=== PATIENT | male | born 1955 | race Hispanic/Latino ===

== ENCOUNTER → 2018-04-19 | Day surgery (SDC) | payer OTHER ==
[~2018-04-19] MED LIST: CATAPRES-TTS 21 EACH TOP; CEFTRIAXONE SOD 1 GM/NS 50 ML 50 ML IV ONE; DEXAMETHASONE SOD PHOS INJ 4 MG/ML VIAL ONE; FEOSOL325 MG PO; IOPAMIDOL 610MG/1ML 300 MG/ML VIAL IV ONE; LIDOCAINE HCL 2% LOCAL INJ 5 ML SDV VIAL INJ ONE; LISINOPRIL10 MG PO; MIDAZOLAM HCL 2 MG/2 ML VIAL ONE; ONDANSETRON HCL INJ 2MG/ML 2ML 2 MG/ML VIAL ONE; PROPOFOL IV EMULSION 10 MG/ML 20 ML VIAL ONE; SEVOFLURANE INHAL SOLN 250 ML PEN BTL ONE; VITAMIN D400 UNIT PO
--- OUTSIDE RECORDS SUMMARY | 2018-04-19 06:22 | XMS REPORT ---
Author Author [facility] Address Unknown Phone Unavailable Care Team Providers Care Book Packer Name Role Phone Unavailable Unavailable Problems This patient has no known problems. Allergies, Adverse Reactions, Alerts This patient has no known allergies or adverse reactions. Medications This patient has no known medications. Encounters Start Date/Time End Date/Time Encounter Type Admission Type Attending [facility] Care Department Encounter ID 2018-04-30 00:00:00 2018-04-30 00:00:00 Outpatient [facility] [id number] 2018-04-29 00:00:00 2018-04-29 00:00:00 Outpatient [facility] [id number] 2018-04-29 00:00:00 2018-04-29 00:00:00 Outpatient [facility] [id number] 2018-04-23 00:00:00 2018-04-23 00:00:00 Outpatient [facility] [id number] 2018-04-23 00:00:00 2018-04-23 00:00:00 Outpatient [facility] [id number] 2018-03-19 12:36:20 2018-03-19 12:36:20 Outpatient [facility] [id number] 2018-03-19 12:05:01 2018-03-19 12:05:01 Outpatient [facility] [id number] 2018-01-14 00:00:00 2018-01-14 00:00:00 Outpatient [facility] [id number] 2018-01-14 00:00:00 2018-01-14 00:00:00 Outpatient [facility] [id number] 2017-12-31 15:07:01 2017-12-31 15:07:01 Outpatient [facility] [id number] 2017-12-31 14:20:06 2017-12-31 14:20:06 Outpatient [facility] [id number] 2017-12-18 12:49:07 2017-12-18 12:49:07 Outpatient [facility] [id number] 2017-12-18 12:25:10 2017-12-18 12:25:10 Outpatient [facility] [id number] 2017-12-11 00:00:00 2017-12-11 00:00:00 Outpatient [facility] [id number] 2017-12-07 10:30:21 2017-12-07 10:30:21 Outpatient [facility] [id number] 2017-12-07 08:18:59 2017-12-07 08:18:59 Outpatient [facility] [id number] 2017-11-13 14:12:21 2017-11-13 14:12:21 Outpatient [facility] [id number] 2017-11-09 08:46:26 2017-11-09 08:46:26 Outpatient [facility] [id number] 2017-11-09 08:43:14 2017-11-09 08:43:14 Outpatient [facility] [id number] 2017-10-04 00:00:00 2017-10-04 00:00:00 Outpatient [facility] [id number] 2017-09-17 13:40:46 2017-09-17 13:40:46 Outpatient [facility] [id number] 2017-09-17 12:53:09 2017-09-17 12:53:09 Outpatient [facility] [id number] 2017-09-10 00:00:00 2017-09-10 00:00:00 Outpatient [facility] [id number] 2017-09-10 00:00:00 2017-09-10 00:00:00 Outpatient [facility] [id number] 2017-08-14 13:40:46 2017-08-14 13:40:46 Outpatient [facility] [id number] 2017-08-13 11:36:33 2017-08-13 11:36:33 Outpatient [facility] [id number] 2017-08-13 00:00:00 2017-08-13 00:00:00 Outpatient [facility] [id number] 2017-08-07 08:55:42 2017-08-07 08:55:42 Outpatient [facility] [id number] 2017-07-31 08:18:51 2017-07-31 08:18:51 Outpatient [facility] [id number] 2017-07-31 00:00:00 2017-07-31 00:00:00 Outpatient [facility] [id number] 2017-06-18 12:51:31 2017-06-18 12:51:31 Outpatient [facility] [id number] 2017-06-18 11:24:53 2017-06-18 11:24:53 Outpatient [facility] [id number] 2017-06-18 00:00:00 2017-06-18 00:00:00 Outpatient [facility] [id number] 2017-05-22 00:00:00 2017-05-22 00:00:00 Outpatient [facility] [id number] 2017-05-18 00:00:00 2017-05-18 00:00:00 Outpatient [facility] [id number] 2017-05-15 15:44:16 2017-05-15 15:44:16 Outpatient [facility] [id number] 2017-05-15 13:52:43 2017-05-15 13:52:43 Outpatient [facility] [id number] 2017-05-08 07:05:36 2017-05-08 07:05:36 Outpatient [facility] [id number] 2017-05-04 11:37:01 2017-05-04 11:37:01 Outpatient [facility] [id number] 2017-05-02 12:57:14 2017-05-02 12:57:14 Outpatient [facility] [id number] 2017-05-01 08:43:51 2017-05-01 08:43:51 Outpatient [facility] [id number] 2017-04-20 13:50:29 2017-04-20 13:50:29 Outpatient [facility] [id number] 2017-04-18 10:01:20 2017-04-18 10:01:20 Outpatient [facility] [id number] 2017-04-17 13:49:13 2017-04-17 13:49:13 Outpatient [facility] [id number] 2017-04-17 13:17:10 2017-04-17 13:17:10 Outpatient [facility] [id number] 2017-04-06 10:36:43 2017-04-06 10:36:43 Outpatient [facility] [id number] 2017-04-04 11:04:18 2017-04-04 11:04:18 Outpatient [facility] [id number] 2017-04-04 09:46:43 2017-04-04 09:46:43 Outpatient [facility] [id number] 2017-03-21 00:00:00 2017-03-21 00:00:00 Outpatient [facility] [id number] 2017-03-21 00:00:00 2017-03-21 00:00:00 Outpatient [facility] [id number] 2017-03-07 00:00:00 2017-03-07 00:00:00 Outpatient [facility] [id number] 2017-03-06 13:40:08 2017-03-06 13:40:08 Outpatient [facility] [id number] 2017-03-06 08:24:17 2017-03-06 08:24:17 Outpatient [facility] [id number] 2017-03-02 11:28:16 2017-03-02 11:28:16 Outpatient [facility] [id number] 2017-02-28 15:04:51 2017-02-28 15:04:51 Outpatient [facility] [id number] 2017-02-28 11:40:17 2017-02-28 11:40:17 Outpatient [facility] [id number] 2017-02-14 10:21:57 2017-02-14 10:21:57 Outpatient [facility] [id number] 2017-02-13 14:54:06 2017-02-13 14:54:06 Outpatient [facility] [id number] 2017-02-13 14:28:19 2017-02-13 14:28:19 Outpatient [facility] [id number] 2017-02-12 08:21:46 2017-02-12 08:21:46 Outpatient [facility] [id number] 2017-02-12 07:02:30 2017-02-12 07:02:30 Outpatient [facility] [id number] 2017-01-25 00:00:00 2017-01-25 00:00:00 Outpatient [facility] [id number] 2017-01-23 10:19:46 2017-01-23 10:19:46 Outpatient [facility] [id number] 2017-01-23 09:36:24 2017-01-23 09:36:24 Outpatient [facility] [id number] 2017-01-16 14:53:00 2017-01-16 14:53:00 Outpatient [facility] [id number] 2017-01-16 14:13:21 2017-01-16 14:13:21 Outpatient [facility] [id number] 2017-01-11 11:06:59 2017-01-11 11:06:59 Outpatient [facility] [id number] 2017-01-09 07:58:28 2017-01-09 07:58:28 Outpatient [facility] [id number] 2017-01-08 10:01:16 2017-01-08 10:01:16 Outpatient [facility] [id number] 2016-12-28 10:20:54 2016-12-28 10:20:54 Outpatient [facility] [id number] 2016-12-26 09:43:43 2016-12-26 09:43:43 Outpatient [facility] [id number] 2016-12-25 10:33:27 2016-12-25 10:33:27 Outpatient [facility] [id number] 2016-12-19 14:35:29 2016-12-19 14:35:29 Outpatient [facility] [id number] 2016-12-19 13:58:24 2016-12-19 13:58:24 Outpatient [facility] [id number] 2016-12-14 10:24:03 2016-12-14 10:24:03 Outpatient [facility] [id number] 2016-12-12 07:36:30 2016-12-12 07:36:30 Outpatient [facility] [id number] 2016-12-11 08:15:31 2016-12-11 08:15:31 Outpatient [facility] [id number] 2016-11-30 12:45:50 2016-11-30 12:45:50 Outpatient [facility] [id number] 2016-11-28 08:44:39 2016-11-28 08:44:39 Outpatient [facility] [id number] 2016-11-28 08:39:06 2016-11-28 08:39:06 Outpatient [facility] [id number] 2016-11-28 00:00:00 2016-11-28 00:00:00 Outpatient [facility] [id number] 2016-11-27 10:24:11 2016-11-27 10:24:11 Outpatient [facility] [id number] 2016-11-21 12:34:24 2016-11-21 12:34:24 Outpatient [facility] [id number] 2016-11-21 11:50:33 2016-11-21 11:50:33 Outpatient [facility] [id number] 2016-11-16 10:35:47 2016-11-16 10:35:47 Outpatient [facility] [id number] 2016-11-14 11:54:12 2016-11-14 11:54:12 Outpatient [facility] [id number] 2016-11-14 09:49:17 2016-11-14 09:49:17 Outpatient [facility] [id number] 2016-10-31 00:00:00 2016-10-31 00:00:00 Outpatient [facility] [id number] 2016-10-31 00:00:00 2016-10-31 00:00:00 Outpatient [facility] [id number] 2016-10-31 00:00:00 2016-10-31 00:00:00 Outpatient [facility] [id number] 2016-10-31 00:00:00 2016-10-31 00:00:00 Outpatient [facility] [id number] 2016-10-23 09:32:31 2016-10-23 09:32:31 Outpatient [facility] [id number] 2016-10-19 10:00:45 2016-10-19 10:00:45 Outpatient [facility] [id number] 2016-10-17 09:36:16 2016-10-17 09:36:16 Outpatient [facility] [id number] 2016-10-17 07:02:02 2016-10-17 07:02:02 Outpatient [facility] [id number] 2016-10-12 00:00:00 2016-10-12 00:00:00 Outpatient [facility] [id number] 2016-10-10 16:03:26 2016-10-10 16:03:26 Outpatient [facility] [id number] 2016-10-10 13:50:01 2016-10-10 13:50:01 Outpatient [facility] [id number] 2016-10-02 07:56:16 2016-10-02 07:56:16 Outpatient [facility] [id number] 2016-09-22 08:28:23 2016-09-22 08:28:23 Outpatient [facility] [id number]
--- OUTSIDE RECORDS SUMMARY | 2018-04-19 06:22 | XMS REPORT | Clinical Summary ---
Author Author [facility] Organization [facility] Address Unknown Phone Unavailable Care Team Providers Care Delinquent Tax Collector Name Role Phone PCP Unavailable Allergies No Known Allergies Medications End Date Status Medication Sig Dispensed Refills Start Date Active lisinopril (PRINIVIL, Take 20 mg by 0 ZESTRIL) 20 mg tablet mouth daily. Active ondansetron (ZOFRAN) 8 mg Take 1 tablet 90 tablet 2 tablet by mouth 7 every 8 hours as needed for Nausea. Active DULoxetine (CYMBALTA) 30 Take 1 90 capsule 1 mg delayed release capsule by 8 capsuleIndications: mouth daily. Neuropathy associated with cancer Active polyethylene glycol Add lukewarm 4000 mL 0 (GOLYTELY) 236-22.74-6.74 drinking 8 -5.86 gram oral water to the solutionIndications: fill rohan (4 Colon cancer metastasized liters) and to intra-abdominal lymph shake. Drink node as directed by your doctor.. 05/15/2017 Discontinued baclofen (LIORESAL) 10 mg Take 1 tablet 30 tablet 0 tablet by mouth 3 7 times daily as needed (hiccups) Start taking at night as medication can make you drowsy.. 05/15/2017 Discontinued DULoxetine (CYMBALTA) 30 Take 1 45 capsule 0 mg delayed release capsule by 8 capsuleIndications: Colon mouth daily. cancer metastasized to intra-abdominal lymph node 05/15/2017 Discontinued DULoxetine (CYMBALTA) 30 Take 1 45 capsule 0 201 mg delayed release capsule by 8 capsuleIndications: mouth daily. 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 Hypertension 10/10/2016 Encounters Care Team Description Date Type Specialty Scott Byers MD Crawford, Margaret G, SPOOL SANDER Colon cancer metastasized to intra-abdominal lymph node (Primary Dx) 03/19/2018 Office Visit Oncology 03/19/2018 Travel Racquel Adamson, Fellow() Cong Ohara, Fellow() Small B-cell lymphoma of intra-abdominal lymph nodes (Primary Dx) 12/31/2017 Office Visit Hematology Sierra Appiah MD Crawford, Margaret G, SPOOL SANDER Colon cancer metastasized to intra-abdominal lymph node (Primary Dx) 12/18/2017 Office Visit Oncology Anastasiia Regalado MD Lymphadenopathy 12/07/2017 Hospital Radiology Encounter Anastasiia Regalado MD Malignant neoplasm of colon, unspecified part of colon 12/07/2017 Hospital Radiology Encounter Vashti Hoyt Interpretation 12/04/2017 Telephone Scott Byers MD Crawford, Margaret G, SPOOL SANDER Colon cancer metastasized to intra-abdominal lymph node (Primary Dx) 11/13/2017 Office Visit Oncology Scott Byers MD Colon cancer metastasized to intra-abdominal lymph node 11/09/2017 Ancillary Radiology Procedure Ilda Bennett MD Davis, Robert W, Fellow() Small B-cell lymphoma of intra-abdominal lymph nodes (Primary Dx); Colon cancer metastasized to intra-abdominal lymph node 09/17/2017 Office Visit Hematology Scott Byers MD Crawford, Margaret G, SPOOL SANDER Colon cancer metastasized to intra-abdominal lymph node (Primary Dx) 08/14/2017 Office Visit Oncology Sujatha Lanier NP 08/13/2017 Anesthesia Gastroenterology Event Cong Alvarez MD Pappas, Stephen C, MD Colon cancer metastasized to intra-abdominal lymph node 08/13/2017 Hospital Encounter Martita Gee Interpretation 08/13/2017 Telephone Lucia Longoria RN 08/09/2017 Clinical Case Mgt Cong Alvarez MD Patel, Falguni, MD Proc, Bt Gi 07/31/2017 Hospital Encounter Ilda Bennett MD Small B-cell lymphoma, unspecified body region (Primary Dx) 06/18/2017 Office Visit Hematology Ilda Bennett MD Small B-cell lymphoma, unspecified body region 06/18/2017 Orders Only Hematology Debo Humphries NP Colon cancer metastasized to intra-abdominal lymph node (Primary Dx) 05/17/2017 Orders Only Gastroenterology Scott Byers MD Afrough, Aimaz, Fellow() CLL (chronic lymphocytic leukemia) (Primary Dx); Neuropathy associated with cancer; Colon cancer metastasized to intra-abdominal lymph node 05/15/2017 Office Visit Oncology Scott Byers MD Colon cancer metastasized to intra-abdominal lymph node 05/08/2017 Ancillary Radiology Procedure Scott Byers MD Allen, Leikasha M, RN 05/04/2017 Hospital Oncology Encounter Miah Woodruff MD Huynh-Truong, Lan Anh, RN Colon cancer metastasized to intra-abdominal lymph node 05/02/2017 Hospital Oncology Encounter Scott Byers MD 04/25/2017 Nurse Only Oncology Anastasiia Regalado MD Woods, Latoya L, RN 04/20/2017 Hospital Oncology Encounter Adrianna Hollins, Fellow() Neuropathy associated with cancer (Primary Dx) 04/20/2017 Orders Only Oncology Miah Woodruff MD 04/19/2017 Nurse Only Oncology Anastasiia Regalado MD Woods, Latoya L, RN Colon cancer metastasized to intra-abdominal lymph node 04/18/2017 Hospital Oncology Encounter after 04/18/2017 Family History Medical History Relation Name Comments Hypertension Father Diabetes Mother Relation Name Status Comments Father Mother Social History Date Tobacco Use Types Packs/Day Years Used Never Smoker Smokeless Tobacco: Never Used Tobacco Cessation: Counseling Given: No Alcohol Use Drinks/Week oz/Week Comments No Sex Assigned at Date Recorded Not on file Industry Job Start Date Occupation Not on file Not on file Not on file Travel End Travel History Travel Start No recent travel history available. Last Filed Vital Signs Time Taken Vital Sign Reading 03/19/2018 12:36 PM [employer] Blood Pressure 140/81 03/19/2018 12:36 PM [employer] Pulse 64 03/19/2018 12:36 PM [employer] SUPERVISOR Temperature 36.6 C (97.9 F) 03/19/2018 12:36 PM [employer] SUPER[employer] Respiratory Rate 17 08/13/2017 1:45 PM CDT Oxygen Saturation 97% - Inhaled Oxygen - Concentration 03/19/2018 12:36 PM [employer] SUPER[employer] Weight 95.4 kg (210 lb 6.4 oz) 03/19/2018 12:36 PM [employer] SUPER[employer] Height 167.6 cm (5' 6") 03/19/2018 12:36 PM [employer]ING SUPERVISOR Body Mass Index 33.96 Plan of Treatment Care Team Description Date Type Specialty Scott Byers MD [address] [place] [address] [phone] 04/23/2018 Lab Appointment Lab Scott Byers MD [address] [place] [address] [phone] 04/23/2018 Ancillary Radiology Procedure Ilda Bennett MD [address] [facility] [address] [place] [address] [phone] 04/29/2018 Lab Appointment Lab Cong Ohara, Damon() [facility] [address] [place] [address] 04/29/2018 Office Visit Hematology Scott Byers MD [address] [facility] [address] [place] [address] [phone] 04/30/2018 Office Visit Oncology Health Maintenance Due Date Last Done Comments IMM Influenza Seasonal 12/03/2017 Oct to May (>/=19 yrs) Colonoscopy 3yr 08/13/2020 08/13/2017 Procedures Comments Procedure Name Priority Date/Time Associated Diagnosis PATHOLOGIST REVIEW Routine 03/19/2018 12:10 PM [employer]OCK[employer] SUPERVISOR FERRITIN Routine 03/19/2018 Colon cancer metastasized 12:10 PM [employer]OCKING SUPERVISOR to intra-abdominal lymph node CBC/DIFF STAT 03/19/2018 Colon cancer metastasized 12:10 PM FIB[employer] LOCKING SUPERVISOR to intra-abdominal lymph node CEA STAT 03/19/2018 Colon cancer metastasized 12:10 PM F[employer] LOCKING SUPERVISOR to intra-abdominal lymph node COMPREHENSIVE METABOLIC STAT 03/19/2018 Colon cancer metastasized PANEL(DBIL NOT INCLUDED) 12:10 PM F[employer]ER LOCKING SUPERVISOR to intra-abdominal lymph node IRON PROFILE Routine 12/31/2017 2:36 PM CDT FERRITIN Routine 12/31/2017 2:36 PM CDT CEA STAT 12/18/2017 Colon cancer metastasized 12:31 PM CDT to intra-abdominal lymph node COMPREHENSIVE METABOLIC STAT 12/18/2017 Colon cancer metastasized PANEL(DBIL NOT INCLUDED) 12:31 PM CDT to intra-abdominal lymph node CBC/DIFF STAT 12/18/2017 Colon cancer metastasized 12:31 PM CDT to intra-abdominal lymph node [facility] FLOW Routine 12/07/2017 2:58 PM CDT PERCUT BIOPSY, ABDOMINAL Routine 12/07/2017 Lymphadenopathy MASS 12:14 PM CDT FNA W/IMAGE Routine 12/07/2017 Malignant neoplasm of 12:14 PM CDT colon, unspecified part of colon CT GUIDANCE CYST ASPER Routine 12/07/2017 Lymphadenopathy DRAIN 12:14 PM CDT [facility] SURGICAL PATHOLOGY Routine 12/07/2017 12:00 PM CDT [facility] CYTOLOGY Routine 12/07/2017 12:[address] ABDOMEN AND PELVIS Today 11/09/2017 Colon cancer metastasized CONTRAST 12:31 PM CDT to intra-abdominal lymph node CT CHEST W CONTRAST Today 11/09/2017 Colon cancer metastasized 12:31 PM CDT to intra-abdominal lymph node CBC/DIFF STAT 11/09/2017 Colon cancer metastasized 8:50 AM CDT to intra-abdominal lymph node CEA STAT 11/09/2017 Colon cancer metastasized 8:50 AM CDT to intra-abdominal lymph node COMPREHENSIVE METABOLIC STAT 11/09/2017 Colon cancer metastasized PANEL(DBIL NOT INCLUDED) 8:50 AM CDT to intra-abdominal lymph node CBC/DIFF Routine 09/17/2017 Small B-cell lymphoma, 1:12 PM CDT unspecified body region HGB FRACTIONATION Routine 09/17/2017 Small B-cell lymphoma, 1:12 PM CDT unspecified body region LDH Routine 09/17/2017 Small B-cell lymphoma, 1:12 PM CDT unspecified body region [facility] SURGICAL PATHOLOGY Routine 08/13/2017 12:38 PM CDT COLONOSCOPY Routine 08/13/2017 Colon cancer metastasized 11:36 AM CDT to intra-abdominal lymph node PATHOLOGIST REVIEW Routine 08/07/2017 8:56 AM CDT CEA Routine 08/07/2017 Colon cancer metastasized 8:56 AM CDT to intra-abdominal lymph node COMPREHENSIVE METABOLIC STAT 08/07/2017 Colon cancer metastasized PANEL(DBIL NOT INCLUDED) 8:56 AM CDT to intra-abdominal lymph node CBC/DIFF STAT 08/07/2017 Colon cancer metastasized 8:56 AM CDT to intra-abdominal lymph node 12 LEAD EKG Routine 07/31/2017 8:58 AM CDT PATHOLOGIST REVIEW Routine 06/18/2017 11:43 AM CDT SAVE SMEAR/ NOT FOR PATH STAT 06/18/2017 Small B-cell lymphoma, REVIEW 11:43 AM CDT unspecified body region COMPREHENSIVE METABOLIC STAT 06/18/2017 Small B-cell lymphoma, PANEL(DBIL NOT INCLUDED) 11:43 AM CDT unspecified body region CBC/DIFF STAT 06/18/2017 Small B-cell lymphoma, 11:43 AM CDT unspecified body region CEA STAT 05/15/2017 Colon cancer metastasized 1:53 PM CDT to intra-abdominal lymph node COMPREHENSIVE METABOLIC STAT 05/15/2017 Colon cancer metastasized PANEL(DBIL NOT INCLUDED) 1:53 PM CDT to intra-abdominal lymph node CBC/DIFF STAT 05/15/2017 Colon cancer metastasized 1:53 PM CDT to intra-abdominal lymph node CT ABDOMEN AND PELVIS Routine 05/08/2017 Colon cancer metastasized CONTRAST 8:57 AM [employer] SUPERVISOR to intra-abdominal lymph node CT CHEST W CONTRAST Routine 05/08/2017 Colon cancer metastasized 8:57 AM [employer]OCK[employer] SUPER[employer]OR to intra-abdominal lymph node COMPREHENSIVE METABOLIC STAT 05/01/2017 Colon cancer metastasized PANEL(DBIL NOT INCLUDED) 8:50 AM F[employer]OCKING SUPER[employer]OR to intra-abdominal lymph node CBC/DIFF Routine 05/01/2017 Colon cancer metastasized 8:50 AM F[employer]OCKING SUPER[employer]OR to intra-abdominal lymph node after 04/18/2017 Results * CEA (03/19/2018 12:10 PM FIBER [employer]OCKING SUPERVISOR) Only the most recent of 5 results within the time period is included. CEA <1.00 <5.0 ng/mL [facility] 1 Specimen Blood Performing Organization Address City/State/Zipcode Phone Number [facility] 1 * COMPREHENSIVE METABOLIC PANEL(DBIL NOT INCLUDED) (03/19/2018 12:10 PM F[employer]OCKING SUPERVISOR) Only the most recent of 7 results within the time period is included. Albumin 4.9 4.2 - 5.5 g/dL [facility] 1 Calcium 9.9 8.6 - 10.3 mg/dL [facility] 1 CO2 30 21 - 31 mmol/L [facility] 1 Chloride 101 98 - 107 mmol/L [facility] 1 Creatinine 0.80 0.70 - 1.30 mg/dL [facility] 1 Glucose 99 70 - 110 mg/dL [facility] 1 Alk Phos 53 34 - 104 U/L [facility] 1 Potassium 4.3 3.5 - 5.1 mmol/L [facility] 1 Sodium 138 136 - 145 mmol/L [facility] 1 ALT 21 7 - 52 U/L [facility] 1 AST 18 13 - 39 U/L [facility] 1 Urea Nitrogen 19 7 - 25 mg/dL [facility] 1 T Bilirubin 0.6 0.2 - 1.2 mg/dL [facility] 1 T Protein 7.0 6.0 - 8.3 g/dL [facility] 1 GFR, Estimated >60 mL/min/1.73 m2 [facility] 1 GFR, Estim, >60 mL/min/1.73 m2 [facility] 1 Afr-Am Anion Gap 7 [facility] 1 Specimen Blood Performing Organization Address [facility] Phone Number [facility] 1 * PATHOLOGIST REVIEW (03/19/2018 12:10 PM FIBER LOCKING SUPERVISOR) Only the most recent of 3 results within the time period is included. Pathologist (note) [facility] Review Slide reviewed for cell 2 identification. There is absolute lymphocytosis consisting of predominantly small to intermediate size lymphoid cells with clumped chromatin. Occasional larger cells with finer dispersed chromatin and prominent nucleoli are also identified, likely representing prolymphocytes. These morphologic findings are compatible with the patient's known diagnosis of chronic lymphocytic leukemia/small lymphocytic lymphoma. If clinically warranted, peripheral blood flow cytometry may be requested for further evaluation. Electronically signed out by: Rodolfo Martinez M.D./[id number] CPT [id number] Performing Organization Address [facility] Phone Number [facility] 2 * FERRITIN (03/19/2018 12:10 PM FIBER LOCKING SUPERVISOR) Only the most recent of 2 results within the time period is included. Ferritin 67.70 23.9 - 336.2 ng/mL [facility] 1 Specimen Blood Performing Organization Address [facility] Phone Number [facility] 1 * CBC/DIFF (03/19/2018 12:10 PM FIBER LOCKING SUPERVISOR) Only the most recent of 8 results within the time period is included. WBC 14.3 (H) 4.5 - 12.0 K/uL [facility] 2 RBC 5.50 4.60 - 6.20 M/uL [facility] 2 Hemoglobin 14.0 14.0 - 18.0 g/dL [facility] 2 Hematocrit 43.9 40.0 - 54.0 % [facility] 2 MCV 80 (L) 82 - 92 fL [facility] 2 MCH 25.5 (L) 27.0 - 31.0 pg [facility] 2 MCHC 31.9 (L) 32.0 - 36.0 g/dL [place] [address] RDW 44.9 (H) 35.1 - 43.9 fL [facility] 2 Platelet 202 150 - 400 K/uL [facility] 2 Neutrophil 39.0 34.0 - 67.9 % [facility] 3 Lymphocyte 29.0 21.8 - 50.0 % [facility] 3 Atypical Lymph 15 % [facility] 3 Monocyte 15.0 (H) 5.3 - 12.0 % [facility] 3 Basophil None seen 0.2 - 1.2 % [facility] 3 Eosinophil 2.0 0.8 - 5.0 % [facility] 3 Neutrophil, Abs 5.58 (H) 1.78 - 5.36 K/uL [facility] 3 Lymphocyte, Abs 4.15 (H) 1.32 - 3.57 K/uL [facility] 3 Monocyte, Abs 2.15 (H) 0.30 - 0.82 K/uL [facility] 3 Basophil, Abs None seen 0.01 - 0.08 K/uL [facility] 3 Eosinophil, Abs 0.29 0.04 - 0.54 K/uL [facility] 3 Diff Comment Reviewed by Pathologist [facility] 3 Specimen Blood Performing Organization Address City/[facility] Phone Number [facility] 2 MAIN[facility] 3 * IRON PROFILE (12/31/2017 2:36 PM CDT) Iron 70 50 - 212 ug/dL [facility] 1 TIBC 477 (H) 250 - 450 ug/dL [facility] 1 % Iron Sat 15 % [facility] 1 Performing Organization Address [facility] Phone Number [facility] 1 * [facility] FLOW (12/07/2017 2:58 PM CDT) [facility] FLOW (note) [facility] IMMUNOPHENOTYPING BY FLOW CYTOMETRY Collected: 12/07/2017 Received: 12/07/2017 Specimen(s) Received: Other, deep fine needle aspiration LN Lt iliac Results-Comments Flow cytometric analysis identifies 30% of total events as CD19 and CD20 (dim/partial) positive B-cells co-expressing CD5, CD23 and kappa (dim) light chain.This immunophenotype and limited morphologic findings are characteristic for small lymphocytic lymphoma or CLL. Interpretation TISSUE, FLOW CYTOMETRY ([id number], [id number]): - CD5+ MONOCLONAL B-CELL POPULATION IDENTIFIED (SEE COMMENT) PROCEDURE: A cell suspension is prepared and stained with the following: CD45, CD2, CD3, CD5, CD7, CD4, CD8, CD19, CD20, CD22, CD23, CD25, CD16, CD56, CD10 ([place]), CD11c, CD103, CD38,SIg [place],SIg Lambda, 7-AAD. FINDINGS: Viability of the specimen: 72.5% Aberrant monotypic B cell population (small to medium cell size): 30% of events - POSITIVE for: CD5, CD19, CD20 (dim, partial), CD22, CD23, CD45 and dim surface kappa light chain. - NEGATIVE for: CD10, SIg Lambda, and all other tested markers OTHER FINDINGS: LYMPHOCYTES: 71.4% T-cells: 12.8% of lymphocytes with a CD4/CD8 ratio of 10.6, without loss of celestin T-cell markers B-cells: 0.1% of lymphocytes without light chain restriction NK cells: 0.1% of lymphocytes GRANULOCYTES: 0.2% MONOCYTES: 0.2% Red cells/debris/unclassified: 20.4% of events The residents and fellow designated below analyzed the pattern and completed the interpretation and report. Anatoliy Butler MD; Gissell Hall MD. TEACHING PHYSICIAN STATEMENT "I have personally reviewed all relevant specimen preparations and agree with the resident/fellow's findings and interpretation. I have personally issued this report". CPT 14766 This test was developed and its performance characteristics determined by [facility].It has not been cleared or approved by the U.S. Food and Drug Administration.The FDA has determined that such clearance or approval is not necessary.This test is used for clinical purposes.It should not be regarded as investigational or for research. This laboratory is certified under the Clinical Laboratory Improvement Amendments of 1988 (CLIA-88) as qualified to perform high complexity clinical laboratory testing. Electronically Signed Out lc/12/07/2017 KEIRA FLYNN MD Staff Pathologist Performing Organization Address City/State/Zipcode Phone Number [facility] * CT GUIDANCE CYST ASPER DRAIN (12/07/2017 12:14 PM CDT) Impressions Performed At IMPRESSION: SMS Successful CT guided fine-needle aspiration and core biopsy of a left iliac chain lymph node. Dictated By: Francisco Shelton MD, 12/15/2017 7:09 PM I have reviewed the study and agree with the findings in this report. Signed By: Dariel Garcia MD, 12/18/2017 1:36 PM Narrative Performed At Procedure: CT guided biopsy ofa left iliac chain lymph node . 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 Post operative diagnosis: Left iliac chain lymphadenopathy. Conscious Sedation: None Sedation time: 0 minutes Patient was continuously monitored by the dedicated IR nurse. Dose Length Product:305 mGy*cm. Contrast used:NONE Estimated blood loss: less than 5 mL Specimens:5 core biopsy samples, 3 FNA biopsy samples Blood administered: None Implants: None Condition: Good Disposition: Home CPT procedure code: 78884 S&I code: [id number] DISCUSSION: The prior CT dated 11/09/17 was evaluated which demonstrated left iliac chain lymphadenopathy.A limited CT scan was performed in the region of abnormality, which redemonstrated the previous findings.A safe approach was determined for specimen acquisition. The patient was placed in the supine position.The left abdominal/inguinal region was prepped and draped in the usual sterile fashion.1% lidocaine was infiltrated into the subcutaneous tissues for local anesthesia. Under computed tomographic guidance, a 16 gauge coaxial introducer needle was passed into the mass.A total of 3 passes were made through the mass with 22-gauge needles.The samples were given to the pathologist for evaluation and adequacy confirmed. A total of 5 core biopsies were then obtained through the needle guide using a 18-gauge, 9 cm long, 1 mm throw core biopsy gun. The core biopsy samples appeared fragmented. All specimens were given to pathology for further evaluation.There were no immediate complications.Dariel Garcia MD was present throughout the procedure. Condition:Stable Disposition:Home Procedure Note Interface, Rad/Mammog In - 12/18/2017 1:41 PM CDT Procedure: CT guided biopsy of a left iliac chain lymph node . 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 Post operative diagnosis: Left iliac chain lymphadenopathy. Conscious Sedation: None Sedation time: 0 minutes Patient was continuously monitored by the dedicated IR nurse. Dose Length Product: 305 mGy*cm. Contrast used: NONE Estimated blood loss: less than 5 mL Specimens:5 core biopsy samples, 3 FNA biopsy samples Blood administered: None Implants: None Condition: Good Disposition: Home CPT procedure code: 80487 S&I code: 77621 DISCUSSION: The prior CT dated 11/09/17 was evaluated which demonstrated left iliac chain lymphadenopathy. A limited CT scan was performed in the region of abnormality, which redemonstrated the previous findings. A safe approach was determined for specimen acquisition. The patient was placed in the supine position. The left abdominal/inguinal region was prepped and draped in the usual sterile fashion. 1% lidocaine was infiltrated into the subcutaneous tissues for local anesthesia. Under computed tomographic guidance, a 16 gauge coaxial introducer needle was passed into the mass. A total of 3 passes were made through the mass with 22-gauge needles. The samples were given to the pathologist for evaluation and adequacy confirmed. A total of 5 core biopsies were then obtained through the needle guide using a 18-gauge, 9 cm long, 1 mm throw core biopsy gun. The core biopsy samples appeared fragmented. All specimens were given to pathology for further evaluation.There were no immediate complications. Dariel Garcia MD was present throughout the procedure. Condition: Stable Disposition: Home IMPRESSION IMPRESSION: Successful CT guided fine-needle aspiration and core biopsy of a left iliac chain lymph node. Dictated By: Francisco Shelton MD, 12/15/2017 7:09 PM I have reviewed the study and agree with the findings in this report. Signed By: Dariel Garcia MD, 12/18/2017 1:36 PM Performing Organization Address City/State/Zipcode Phone Number [facility] * PERCUT BIOPSY, ABDOMINAL MASS (12/07/2017 12:14 PM CDT) Impressions Performed At IMPRESSION: [facility] Successful CT guided fine-needle aspiration and core biopsy of a left iliac chain lymph node. Dictated By: Fracnisco Shelton MD, 12/15/2017 7:09 PM I have reviewed the study and agree with the findings in this report. Signed By: Dariel Garcia MD, 12/18/2017 1:36 PM Narrative Performed At Procedure: CT guided biopsy ofa left iliac chain lymph node . 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 Post operative diagnosis: Left iliac chain lymphadenopathy. Conscious Sedation: None Sedation time: 0 minutes Patient was continuously monitored by the dedicated IR nurse. Dose Length Product:305 mGy*cm. Contrast used:NONE Estimated blood loss: less than 5 mL Specimens:5 core biopsy samples, 3 FNA biopsy samples Blood administered: None Implants: None Condition: Good Disposition: Home CPT procedure code: 78773 S&I code: [id number] DISCUSSION: The prior CT dated 11/09/17 was evaluated which demonstrated left iliac chain lymphadenopathy.A limited CT scan was performed in the region of abnormality, which redemonstrated the previous findings.A safe approach was determined for specimen acquisition. The patient was placed in the supine position.The left abdominal/inguinal region was prepped and draped in the usual sterile fashion.1% lidocaine was infiltrated into the subcutaneous tissues for local anesthesia. Under computed tomographic guidance, a 16 gauge coaxial introducer needle was passed into the mass.A total of 3 passes were made through the mass with 22-gauge needles.The samples were given to the pathologist for evaluation and adequacy confirmed. A total of 5 core biopsies were then obtained through the needle guide using a 18-gauge, 9 cm long, 1 mm throw core biopsy gun. The core biopsy samples appeared fragmented. All specimens were given to pathology for further evaluation.There were no immediate complications.Dariel Garcia MD was present throughout the procedure. Condition:Stable Disposition:Home Procedure Note Interface, Rad/Mammog In - 12/18/2017 1:41 PM CDT Procedure: CT guided biopsy of a left iliac chain lymph node . 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 Post operative diagnosis: Left iliac chain lymphadenopathy. Conscious Sedation: None Sedation time: 0 minutes Patient was continuously monitored by the dedicated IR nurse. Dose Length Product: 305 mGy*cm. Contrast used: NONE Estimated blood loss: less than 5 mL Specimens:5 core biopsy samples, 3 FNA biopsy samples Blood administered: None Implants: None Condition: Good Disposition: Home CPT procedure code: 47364 S&I code: 84941 DISCUSSION: The prior CT dated 11/09/17 was evaluated which demonstrated left iliac chain lymphadenopathy. A limited CT scan was performed in the region of abnormality, which redemonstrated the previous findings. A safe approach was determined for specimen acquisition. The patient was placed in the supine position. The left abdominal/inguinal region was prepped and draped in the usual sterile fashion. 1% lidocaine was infiltrated into the subcutaneous tissues for local anesthesia. Under computed tomographic guidance, a 16 gauge coaxial introducer needle was passed into the mass. A total of 3 passes were made through the mass with 22-gauge needles. The samples were given to the pathologist for evaluation and adequacy confirmed. A total of 5 core biopsies were then obtained through the needle guide using a 18-gauge, 9 cm long, 1 mm throw core biopsy gun. The core biopsy samples appeared fragmented. All specimens were given to pathology for further evaluation.There were no immediate complications. Dariel Garcia MD was present throughout the procedure. Condition: Stable Disposition: Home IMPRESSION IMPRESSION: Successful CT guided fine-needle aspiration and core biopsy of a left iliac chain lymph node. Dictated By: Francisco Shelton MD, 12/15/2017 7:09 PM I have reviewed the study and agree with the findings in this report. Signed By: Dariel Garcia MD, 12/18/2017 1:36 PM Performing Organization Address City/State/Zipcode Phone Number SMS * FNA W/IMAGE (12/07/2017 12:14 PM CDT) Impressions Performed At IMPRESSION: SMS Successful CT guided fine-needle aspiration and core biopsy of a left iliac chain lymph node. Dictated By: Francisco Shelton MD, 12/15/2017 7:09 PM I have reviewed the study and agree with the findings in this report. Signed By: Dariel Garcia MD, 12/18/2017 1:36 PM Narrative Performed At Procedure: CT guided biopsy ofa left iliac chain lymph node . 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 Post operative diagnosis: Left iliac chain lymphadenopathy. Conscious Sedation: None Sedation time: 0 minutes Patient was continuously monitored by the dedicated IR nurse. Dose Length Product:305 mGy*cm. Contrast used:NONE Estimated blood loss: less than 5 mL Specimens:5 core biopsy samples, 3 FNA biopsy samples Blood administered: None Implants: None Condition: Good Disposition: Home CPT procedure code: 46078 S&I code: [id number] DISCUSSION: The prior CT dated 11/09/17 was evaluated which demonstrated left iliac chain lymphadenopathy.A limited CT scan was performed in the region of abnormality, which redemonstrated the previous findings.A safe approach was determined for specimen acquisition. The patient was placed in the supine position.The left abdominal/inguinal region was prepped and draped in the usual sterile fashion.1% lidocaine was infiltrated into the subcutaneous tissues for local anesthesia. Under computed tomographic guidance, a 16 gauge coaxial introducer needle was passed into the mass.A total of 3 passes were made through the mass with 22-gauge needles.The samples were given to the pathologist for evaluation and adequacy confirmed. A total of 5 core biopsies were then obtained through the needle guide using a 18-gauge, 9 cm long, 1 mm throw core biopsy gun. The core biopsy samples appeared fragmented. All specimens were given to pathology for further evaluation.There were no immediate complications.Dariel Garcia MD was present throughout the procedure. Condition:Stable Disposition:Home Procedure Note Interface, Rad/Mammog In - 12/18/2017 1:41 PM CDT Procedure: CT guided biopsy of a left iliac chain lymph node . 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 Post operative diagnosis: Left iliac chain lymphadenopathy. Conscious Sedation: None Sedation time: 0 minutes Patient was continuously monitored by the dedicated IR nurse. Dose Length Product: 305 mGy*cm. Contrast used: NONE Estimated blood loss: less than 5 mL Specimens:5 core biopsy samples, 3 FNA biopsy samples Blood administered: None Implants: None Condition: Good Disposition: Home CPT procedure code: 71511 S&I code: 23735 DISCUSSION: The prior CT dated 11/09/17 was evaluated which demonstrated left iliac chain lymphadenopathy. A limited CT scan was performed in the region of abnormality, which redemonstrated the previous findings. A safe approach was determined for specimen acquisition. The patient was placed in the supine position. The left abdominal/inguinal region was prepped and draped in the usual sterile fashion. 1% lidocaine was infiltrated into the subcutaneous tissues for local anesthesia. Under computed tomographic guidance, a 16 gauge coaxial introducer needle was passed into the mass. A total of 3 passes were made through the mass with 22-gauge needles. The samples were given to the pathologist for evaluation and adequacy confirmed. A total of 5 core biopsies were then obtained through the needle guide using a 18-gauge, 9 cm long, 1 mm throw core biopsy gun. The core biopsy samples appeared fragmented. All specimens were given to pathology for further evaluation.There were no immediate complications. Dariel Garcia MD was present throughout the procedure. Condition: Stable Disposition: Home IMPRESSION IMPRESSION: Successful CT guided fine-needle aspiration and core biopsy of a left iliac chain lymph node. Dictated By: Francisco Shelton MD, 12/15/2017 7:09 PM I have reviewed the study and agree with the findings in this report. Signed By: Dariel Garcia MD, 12/18/2017 1:36 PM Performing Organization Address City/State/Zipcode Phone Number SMS * [facility] SURGICAL PATHOLOGY (12/07/2017 12:00 PM CDT) Only the most recent of 2 results within the time period is included. HX FINAL SOFT TISSUE, SUBMITTED COPATH DIAGNOSIS "LYMPH NODE, LEFT INGUINAL", NEEDLE CORE BIOPSY: - MINUTE FRAGMENTS OF ADIPOSE TISSUE AND BLOOD CLOT (SEE COMMENT) Frances Rodriguez M.D./[id number] Staff Pathologist Narrative Performed At [facility] JO[facility] ROBBINS [facility] Date of 1955 Hospital Number [id number] Location [facility] CT Scan SURGICAL PATHOLOGY Collected:12/07/2017 12:00 Received: 12/07/2017 14:44 PATHOLOGIC DIAGNOSIS SOFT TISSUE, SUBMITTED "LYMPH NODE, LEFT INGUINAL", NEEDLE CORE BIOPSY: - MINUTE FRAGMENTS OF ADIPOSE TISSUE AND BLOOD CLOT (SEE COMMENT) Frances Rodriguez M.D./[id number] Staff Pathologist Comment The concurrent flow cytometry study ([id number]) detected a CD5 positive, monoclonal B-cell population. The concurrent fine needle aspiration ([id number]) was suspicious for lymphoma. The specimen submitted as "needle core biopsy of lymph node" comprised of minute fragments of adipose tissue and blood, no lymphoid tissue is identified despite of additional deeper sections. Clinical correlation is recommended and if further classification is required for clinical management excisional biopsy is suggested. Pertinent Clinical Information Left inguinal lymphadenopathy Gross Description Specimen Material:Left Iliac lymph node biopsy The case is received in one part labeled with the patient's name "JOI ROBBINS", medical record number and given accession number [id number], and it is accompanied by a requisition form labeled with the same name and accession number. Received in formalin labeled "LEFT INGUINAL LYMPH NODE" are multiple minute specks of red-brown tissue.The specimen is submitted in toto following filtration in cassette A. [id number] [place] Morning Microscopic Description Microscopic sections show minute fragments of adipose tissue and blood clot. No lymphoid tissue is identified. I have personally reviewed the relevant preparations for the specimen(s), reviewedand agreed with the resident/fellow's interpretation. Electronically Signed Out Frances Rodriguez M.D/[id number] Staff Pathologist Performing Organization Address City/[facility] Phone Number [place], [place] * [facility] CYTOLOGY (12/07/2017 12:00 AM CDT) HX FINAL Lymph node, left iliac, deep COPATH DIAGNOSIS fine needle aspiration: Specimen satisfactory for evaluation Suspicious for malignancy; see comment Narrative Performed At Name [facility] Date [facility] 1955 Hospital Number [id number] Location [facility] CT Scan CYTOPATHOLOGY Collected:12/07/2017 00:00 Received: 1 14:30 FINAL DIAGNOSIS Lymph node, left iliac, deep fine needle aspiration: Specimen satisfactory for evaluation Suspicious for malignancy; see comment Comment Smear preparation shows sheets of small to intermediate size monotonous lymphocytes concerning for lymphoma. Please see results of concurrent flow cytometry([id number]) and core biopsy ([id number]). 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 Cancer History: The clinical presentation is suggestive of cancer Previous Cancer Gross Description FNA performed by specialty clinic Radiologist performed a fine-needle aspiration of a 1.5cm mass of the left iliac lymph node. 3 passes were performed: 1 Diff-Quick(s), 0 Pap stain(s). An adequacy check was performed. Additional slides were requested and prepared: 0 cytospin(s), 0 cytospin(s) for special stains. A cellblock was not prepared. A core biopsy was prepared. A total of 1 slides were given to the cytology fellow(s) on 12/10/17. Performing Organization Address City/State/Zipcode Phone Number PATRICIA GOMEZ [place], [place] * CT ABDOMEN AND PELVIS CONTRAST (11/09/2017 12:31 PM CDT) Only the most recent of 2 results within the time period is included. Impressions Performed At IMPRESSION: SMS 1.Probable disease progression given increased size of mesenteric and retroperitoneal lymph nodes. 2.A 2.1 cm left adrenal nodule remains indeterminate. Dictated By: Yousif Parada MD, 11/09/2017 4:33 PM I have reviewed the study and agree with the findings in this report. Signed By: Kaiden Iyer MD, 11/09/2017 5:17 PM Narrative Performed At EXAM: CT Chest, Abdomen and Pelvis WITH contrast SMS INDICATION: restaging colon ca COMPARISON: CTs on 05/08/2017 and a 24/03/2016 TECHNIQUE: Chest, abdomen and pelvis were scanned utilizing a multidetector helical scanner from the lung apex to the pubic symphysis after administration of IV contrast. Coronal and sagittal reformations were obtained. Dual liver protocol was performed. Scan was performed during arterial and portal venous phase. IV CONTRAST: 150 mL of Omnipaque 300 ORAL CONTRAST: Gastrografin COMPLICATIONS: None RADIATION DOSE: Total DLP: 1742 mGy*cm Estimated effective dose: (DLP x 0.015 x size factor) mSv CTDIvol has been reviewed. It is below the limits set by the Radiation Protocol Committee (RPC). FINDINGS: LINES and TUBES: None. LUNGS AND AIRWAYS:A 5 mm left lower lobe nodule, stable (series 5 image 87).Airways are normal. PLEURA: The pleural spaces are clear. BASE OF NECK: A 1.2 cm left base of neck lymph node, previously 0.8 cm (series 4 image 9). The thyroid gland is normal. HEART AND MEDIASTINUM: No mediastinal, hilar or axillary lymphadenopathy.The heart is normal in size.. There is no pericardial effusion. HEPATOBILIARY:No focal hepatic lesions. No arterial enhancing lesions. Conventional hepatic artery anatomy.No biliary ductal dilation. GALLBLADDER: No radio-opaque stones or sludge.No wall thickening. SPLEEN: No splenomegaly. PANCREAS: No focal masses or ductal dilatation. ADRENALS: A 2.1 cm left adrenal nodule, stable since 10/23/2016 (series 4 image 58). KIDNEYS/URETERS: Kidneys enhance symmetrically.No hydronephrosis. No cystic or solid mass lesions.No stones. GI TRACT: No abnormal distention, wall thickening, or evidence of bowel obstruction.Post-surgical changes of partial colectomy and ileocolic anastomosis. PELVIC ORGANS/BLADDER: Median lobe hypertrophy of the prostate which indents the inferior wall of the bladder. Mild circumferential bladder wall thickening. LYMPH NODES: *A 1.3 cm aortocaval lymph node, previously 0.8 cm (series 4 image 86) *A 2.5 cm right abdominal mesenteric lymph node, previously 1.6 cm (series 4 image 77) *Several additional nodules measure up to 1.4 cm (series 4 image 74, series 604 image 33) *A 1.4 cm left external iliac lymph node, previously 1.1 cm (series 4, image 107) *A 1.6 cm left internal iliac lymph node, previously 1.6 cm (series 4, image 107) VESSELS: There is mild atherosclerotic disease in the aorta and major arterial branches. PERITONEUM / RETROPERITONEUM: No free air or fluid. BONES: No lytic or blastic lesions. Multilevel degenerative changes of the thoracic and lumbar spine.. SOFT TISSUES: Small fat-containing left inguinal hernia. Procedure Note Interface, Rad/Mammog In - 11/09/2017 5:22 PM CDT EXAM: CT Chest, Abdomen and Pelvis WITH contrast INDICATION: restaging colon ca COMPARISON: CTs on 05/08/2017 and a 24/03/2016 TECHNIQUE: Chest, abdomen and pelvis were scanned utilizing a multidetector helical scanner from the lung apex to the pubic symphysis after administration of IV contrast. Coronal and sagittal reformations were obtained. Dual liver protocol was performed. Scan was performed during arterial and portal venous phase. IV CONTRAST: 150 mL of Omnipaque 300 ORAL CONTRAST: Gastrografin COMPLICATIONS: None RADIATION DOSE: Total DLP: 1742 mGy*cm Estimated effective dose: (DLP x 0.015 x size factor) mSv CTDIvol has been reviewed. It is below the limits set by the Radiation Protocol Committee (RPC). FINDINGS: LINES and TUBES: None. LUNGS AND AIRWAYS: A 5 mm left lower lobe nodule, stable (series 5 image 87). Airways are normal. PLEURA: The pleural spaces are clear. BASE OF NECK: A 1.2 cm left base of neck lymph node, previously 0.8 cm (series 4 image 9). The thyroid gland is normal. HEART AND MEDIASTINUM: No mediastinal, hilar or axillary lymphadenopathy. The heart is normal in size.. There is no pericardial effusion. HEPATOBILIARY: No focal hepatic lesions. No arterial enhancing lesions. Conventional hepatic artery anatomy. No biliary ductal dilation. GALLBLADDER: No radio-opaque stones or sludge. No wall thickening. SPLEEN: No splenomegaly. PANCREAS: No focal masses or ductal dilatation. ADRENALS: A 2.1 cm left adrenal nodule, stable since 10/23/2016 (series 4 image 58). KIDNEYS/URETERS: Kidneys enhance symmetrically. No hydronephrosis. No cystic or solid mass lesions. No stones. GI TRACT: No abnormal distention, wall thickening, or evidence of bowel obstruction. Post-surgical changes of partial colectomy and ileocolic anastomosis. PELVIC ORGANS/BLADDER: Median lobe hypertrophy of the prostate which indents the inferior wall of the bladder. Mild circumferential bladder wall thickening. LYMPH NODES: * A 1.3 cm aortocaval lymph node, previously 0.8 cm (series 4 image 86) * A 2.5 cm right abdominal mesenteric lymph node, previously 1.6 cm (series 4 image 77) * Several additional nodules measure up to 1.4 cm (series 4 image 74, series 604 image 33) * A 1.4 cm left external iliac lymph node, previously 1.1 cm (series 4, image 107) * A 1.6 cm left internal iliac lymph node, previously 1.6 cm (series 4, image 107) VESSELS: There is mild atherosclerotic disease in the aorta and major arterial branches. PERITONEUM / RETROPERITONEUM: No free air or fluid. BONES: No lytic or blastic lesions. Multilevel degenerative changes of the thoracic and lumbar spine.. SOFT TISSUES: Small fat-containing left inguinal hernia. IMPRESSION IMPRESSION: 1. Probable disease progression given increased size of mesenteric and retroperitoneal lymph nodes. 2. A 2.1 cm left adrenal nodule remains indeterminate. Dictated By: Yousif Parada MD, 11/09/2017 4:33 PM I have reviewed the study and agree with the findings in this report. Signed By: Kaiden Iyer MD, 11/09/2017 5:17 PM Performing Organization Address City/State/Zipcode Phone Number SMS * CT CHEST W CONTRAST (11/09/2017 12:31 PM CDT) Only the most recent of 2 results within the time period is included. Impressions Performed At IMPRESSION: SMS 1.Probable disease progression given increased size of mesenteric and retroperitoneal lymph nodes. 2.A 2.1 cm left adrenal nodule remains indeterminate. Dictated By: Yousif Parada MD, 11/09/2017 4:33 PM I have reviewed the study and agree with the findings in this report. Signed By: Kaiden Iyer MD, 11/09/2017 5:17 PM Narrative Performed At EXAM: CT Chest, Abdomen and Pelvis WITH contrast SMS INDICATION: restaging colon ca COMPARISON: CTs on 05/08/2017 and a 24/03/2016 TECHNIQUE: Chest, abdomen and pelvis were scanned utilizing a multidetector helical scanner from the lung apex to the pubic symphysis after administration of IV contrast. Coronal and sagittal reformations were obtained. Dual liver protocol was performed. Scan was performed during arterial and portal venous phase. IV CONTRAST: 150 mL of Omnipaque 300 ORAL CONTRAST: Gastrografin COMPLICATIONS: None RADIATION DOSE: Total DLP: 1742 mGy*cm Estimated effective dose: (DLP x 0.015 x size factor) mSv CTDIvol has been reviewed. It is below the limits set by the Radiation Protocol Committee (RPC). FINDINGS: LINES and TUBES: None. LUNGS AND AIRWAYS:A 5 mm left lower lobe nodule, stable (series 5 image 87).Airways are normal. PLEURA: The pleural spaces are clear. BASE OF NECK: A 1.2 cm left base of neck lymph node, previously 0.8 cm (series 4 image 9). The thyroid gland is normal. HEART AND MEDIASTINUM: No mediastinal, hilar or axillary lymphadenopathy.The heart is normal in size.. There is no pericardial effusion. HEPATOBILIARY:No focal hepatic lesions. No arterial enhancing lesions. Conventional hepatic artery anatomy.No biliary ductal dilation. GALLBLADDER: No radio-opaque stones or sludge.No wall thickening. SPLEEN: No splenomegaly. PANCREAS: No focal masses or ductal dilatation. ADRENALS: A 2.1 cm left adrenal nodule, stable since 10/23/2016 (series 4 image 58). KIDNEYS/URETERS: Kidneys enhance symmetrically.No hydronephrosis. No cystic or solid mass lesions.No stones. GI TRACT: No abnormal distention, wall thickening, or evidence of bowel obstruction.Post-surgical changes of partial colectomy and ileocolic anastomosis. PELVIC ORGANS/BLADDER: Median lobe hypertrophy of the prostate which indents the inferior wall of the bladder. Mild circumferential bladder wall thickening. LYMPH NODES: *A 1.3 cm aortocaval lymph node, previously 0.8 cm (series 4 image 86) *A 2.5 cm right abdominal mesenteric lymph node, previously 1.6 cm (series 4 image 77) *Several additional nodules measure up to 1.4 cm (series 4 image 74, series 604 image 33) *A 1.4 cm left external iliac lymph node, previously 1.1 cm (series 4, image 107) *A 1.6 cm left internal iliac lymph node, previously 1.6 cm (series 4, image 107) VESSELS: There is mild atherosclerotic disease in the aorta and major arterial branches. PERITONEUM / RETROPERITONEUM: No free air or fluid. BONES: No lytic or blastic lesions. Multilevel degenerative changes of the thoracic and lumbar spine.. SOFT TISSUES: Small fat-containing left inguinal hernia. Procedure Note Interface, Rad/Mammog In - 11/09/2017 5:22 PM CDT EXAM: CT Chest, Abdomen and Pelvis WITH contrast INDICATION: restaging colon ca COMPARISON: CTs on 05/08/2017 and a 24/03/2016 TECHNIQUE: Chest, abdomen and pelvis were scanned utilizing a multidetector helical scanner from the lung apex to the pubic symphysis after administration of IV contrast. Coronal and sagittal reformations were obtained. Dual liver protocol was performed. Scan was performed during arterial and portal venous phase. IV CONTRAST: 150 mL of Omnipaque 300 ORAL CONTRAST: Gastrografin COMPLICATIONS: None RADIATION DOSE: Total DLP: 1742 mGy*cm Estimated effective dose: (DLP x 0.015 x size factor) mSv CTDIvol has been reviewed. It is below the limits set by the Radiation Protocol Committee (RPC). FINDINGS: LINES and TUBES: None. LUNGS AND AIRWAYS: A 5 mm left lower lobe nodule, stable (series 5 image 87). Airways are normal. PLEURA: The pleural spaces are clear. BASE OF NECK: A 1.2 cm left base of neck lymph node, previously 0.8 cm (series 4 image 9). The thyroid gland is normal. HEART AND MEDIASTINUM: No mediastinal, hilar or axillary lymphadenopathy. The heart is normal in size.. There is no pericardial effusion. HEPATOBILIARY: No focal hepatic lesions. No arterial enhancing lesions. Conventional hepatic artery anatomy. No biliary ductal dilation. GALLBLADDER: No radio-opaque stones or sludge. No wall thickening. SPLEEN: No splenomegaly. PANCREAS: No focal masses or ductal dilatation. ADRENALS: A 2.1 cm left adrenal nodule, stable since 10/23/2016 (series 4 image 58). KIDNEYS/URETERS: Kidneys enhance symmetrically. No hydronephrosis. No cystic or solid mass lesions. No stones. GI TRACT: No abnormal distention, wall thickening, or evidence of bowel obstruction. Post-surgical changes of partial colectomy and ileocolic anastomosis. PELVIC ORGANS/BLADDER: Median lobe hypertrophy of the prostate which indents the inferior wall of the bladder. Mild circumferential bladder wall thickening. LYMPH NODES: * A 1.3 cm aortocaval lymph node, previously 0.8 cm (series 4 image 86) * A 2.5 cm right abdominal mesenteric lymph node, previously 1.6 cm (series 4 image 77) * Several additional nodules measure up to 1.4 cm (series 4 image 74, series 604 image 33) * A 1.4 cm left external iliac lymph node, previously 1.1 cm (series 4, image 107) * A 1.6 cm left internal iliac lymph node, previously 1.6 cm (series 4, image 107) VESSELS: There is mild atherosclerotic disease in the aorta and major arterial branches. PERITONEUM / RETROPERITONEUM: No free air or fluid. BONES: No lytic or blastic lesions. Multilevel degenerative changes of the thoracic and lumbar spine.. SOFT TISSUES: Small fat-containing left inguinal hernia. IMPRESSION IMPRESSION: 1. Probable disease progression given increased size of mesenteric and retroperitoneal lymph nodes. 2. A 2.1 cm left adrenal nodule remains indeterminate. Dictated By: Yousif Parada MD, 11/09/2017 4:33 PM I have reviewed the study and agree with the findings in this report. Signed By: Kaiden Iyer MD, 11/09/2017 5:17 PM Performing Organization Address City/State/Zipcode Phone Number SMS * L[facility] (09/17/2017 1:12 PM CDT) [facility] 139 (L) 140 - 271 U/L BT MAIN-STATION 1 Specimen Blood Performing Organization Address [facility] Phone Number MISYS BT MAIN-STATION 1 * HGB FRACTIONATION (09/17/2017 1:12 PM CDT) Hemoglobin A 95.2 (L) 96.0 - 98.6 % BT BLOOD BANK Hemoglobin F None detected <2 % BT BLOOD BANK Hemoglobin S Absent % BT BLOOD BANK Hemoglobin A2 4.8 (H) 2.2 - 3.7 % [facility] Hemoglobin C Absent % [facility] Interpretation (note) [facility] Hemoglobin capillary electrophoresis and RBC indicies are reviewed. The RBC count is normal to high, the MCV is low and the Hb A2 is elevated. The pattern is inconclusive--beta-thalassemia trait--although not favored--is associated with increased hemoglobin A2 and iron deficiency was present in the past, supported by the abnormal iron profile. Reviewed and electronically signed by: Pardeep Rodriges MD/ [id number] CPT: 95359 Specimen Blood Performing Organization Address City/State/Zipcode Phone Number [facility] * COLONOSCOPY (08/13/2017 11:36 AM CDT) TEXT Patient Name JOI ROBBINS Date of 1955 Record Number [id number] Date/Time of Procedure 08/13/2017, 11:36:00 AM Endoscopist Sulema Beyer MD./Fellow Ramón Meneses INDICATIONS FOR EXAMINATION:Hi story of colon cancer. PROCEDURE PERFORMED: Colonoscopy - diagnostic INSTRUMENTS: [id number] LIMITATIONS:none TOLERANCE: Good VISUALIZATION:Good PREP QUALITY: BOSTON BOWEL PREPARATION SCALE (BBPS): Right Colon: NA Transverse Colon: 2 Left Colon: 2 Total Score: 4 SPECIMEN COLLECTED: Yes 1 MEDICATIONS:MAC Anesthesia ASA CLASSIFICATION:III ANALGESIA:Anesthesia PROCEDURE TECHNIQUE: Prior to the procedure, a history and physical exam was performed.Patient medications and allergies were reviewed. Informed consent was obtained from the patient after explaining all of the risks, benefits and alternatives to the procedure, which the patient appeared to understand and so stated. Sedation options and risks were discussed with the patient.Patient identification and proposed procedure were verified by the physician and the nurse in the endoscopy suite. Throughout the procedure the patient's level of sedation, blood pressure, pulse and oxygen saturation were monitored continously. After adequate sedation was achieved, a digital rectal exam was performed and the colonoscope was advanced under direct visualization to the terminal ileum.The terminal ileum was identified by visual landmarks. T he scope was subsequently withdrawn slowly while carefully examining the colonic mucosa for abnormalities. In the rectum, the scope was retroflexed to evaluate for internal hemorrhoids and anorectal pathology. The patient was subsequently transferred to the recovery area in satisfactory condition. FINDINGS: s/p right hemicolectomy with side to side anastamosis small ulceration near suture line with overlying stool unable to be washed, no bleeding, random biopsies taken (Jar A) Otherwise normal transverse, descending, sigmoid colon. Internal and externalhemorrhoids seen on retroflexion in the rectum. ENDOSCOPIC DIAGNOSIS: small ulcer near anastamosis s/p right hemicolectomy small hemorrhoids RECOMMENDATIONS: 1. Follow up pathology 2. Return to oncology clinic 3. Likely repeat colonoscopy in 3 years COMPLICATIONS: None.None ESTIMATED BLOOD LOSS:None BLOOD PRODUCTS ADMINISTERED:None GRAFT/IMPLANT:None TOTAL PROCEDURE TIME: 00:14:44 TOTAL SEDATION TIME: 00:00:00 COMMENTS: CPT CODE: [id number] Colonoscopy, flexible; diagnostic, including collection of specimen(s) by brushing or washing, when performed (separate procedur ICD CODE: Z85.038 Personal history of other malignant neoplasm of large intestine I was present during the entire viewing portion of theprocedure.I personally reviewed the images and report prepared by the resident or fellow and agree with the findings.After the procedure was completed, the patient was taken to the recovery in good condition. This Procedure was electronically signed of on : 08/13/2017 2:47:18 PM By Sulema Sen Performing Organization Address [facility] [place] Phone Number SMS * 12 LEAD EKG (07/31/2017 8:58 AM CDT) 12 LEAD EKG FOR [facility] Test Date:2017-07-31 Pat Name: JOI ROBBINS Department: Room: Gender: [employer] Supervisor: [id number] :[id number] 05-28 Requested By: Order Number: [id number] MD: Danika He M.D. Measurements Intervals [place] Rate: 63 P:5 MN: 240 QRS: 10 QRSD: 99 T:6 QT: 391 QTc:403 Interpretive Statements SINUS RHYTHM WITH FIRST DEGREE AV BLOCK MINIMAL VOLTAGE CRITERIA FOR LVH, CONSIDER NORMAL VARIANT Electronically Signed On 07-31-17 13:49:49 CDT by Nasser Lakkis, M.D. Performing Organization Address City/State/Zipcode Phone Number SMS after 04/18/2017 Insurance Type Payer Benefit Subscriber ID Effective Phone Address Plan / Dates Group [employer] [employer] xxxxxxxxxx 2017-P [phone] [address] [facility] [place] [id number] [place] [address]
[2018-04-19 09:25] VITALS: BP 126/79
--- NOTE | 2018-04-19 10:45 | Operative Report ---
DATE OF PROCEDURE: April 19, 2018 PREOPERATIVE DIAGNOSIS: Gross hematuria. POSTOPERATIVE DIAGNOSIS: Gross hematuria. PROCEDURE: Cystoscopy. ANESTHESIA: General. ESTIMATED BLOOD LOSS: Minimal. COMPLICATIONS: None. INDICATIONS FOR PROCEDURE: Mr. Small is a very pleasant 62-year-old male. The patient and I had a long discussion regarding the alternatives, risks and benefits, including doing nothing, cystoscopy, IVP, retrograde pyelogram or ultrasound. He voiced an understanding of the options, the alternatives, and the risks and benefits and elected to proceed. PROCEDURE IN DETAIL: After informed consent was obtained, the patient was taken to the operative suite and placed supine on the table and underwent general anesthesia by the anesthesia service. A time out was taken. Prophylactic antibiotics were performed. A 21-Fijian cystoscope was inserted per urethra. There was massive trilobar prostatic hypertrophy. There was moderate to severe degree of trabeculation. No tumors. No stones. There were pallor seen and some mild neovascularity, but no yordy interstitial radiation cystitis. Multiple attempts were made to even visualize the ureteral orifices. Due to the median lobe, it was impossible. With the inability to catheterize the ureteral orifices, the bladder was drained. The patient was awakened from anesthesia and transported to the recovery room in excellent condition. Job#: [id number]
== END | disposition home or self-care (01) ==
LOC: OR 06:18
PROVIDERS: ATTEND Urology
DX: R31.0 Gross hematuria (principal); N32.89 Other specified disorders of bladder; R35.1 Nocturia; N40.1 Benign prostatic hyperplasia with lower urinary tract symptoms; N13.8 Other obstructive and reflux uropathy; D35.02 Benign neoplasm of left adrenal gland; Z91.19 Patient's noncompliance with other medical treatment and regimen; I10 Essential (primary) hypertension; I44.0 Atrioventricular block, first degree; Z01.810 Encounter for preprocedural cardiovascular examination; Z68.32 Body mass index [BMI] 32.0-32.9, adult
CPT/HCPCS: 52000; 93005; C1758; J0696; J1100; J2001; J2250; J2405; J2704; Q9967; 76000